=== PATIENT | female | born 1995 | race Caucasian/White ===

== ENCOUNTER 2018-03-30 15:35 | Emergency (ER) | payer MEDICAID ==
[2018-03-30 15:53] VITALS: BP 122/77
--- NOTE | 2018-03-30 16:14 | EDPHY ---
H & P Time Seen by Provider: 03/30/18 15:55 HPI/ROS: CHIEF COMPLAINT: Head injury HISTORY OF PRESENT ILLNESS: 22-year-old female presents to the emergency department by private vehicle with concerns about closed head injury. Patient states 1 week ago she apparently was arrested. She sustained took some type of head injury including an abrasion to the dorsal aspect of her nose. She was placed in assisted and discharge. She has been to urgent care as well as [facility]. They sent her to the emergency department for evaluation of her head injury. She has a mild diffuse headache. Most of her pain is over the anterior aspect of her nose. She denies neck pain. Denies chest pain or difficulty breathing. No nausea or vomiting. Her appetite has been normal. No injury to upper or lower extremities. REVIEW OF SYSTEMS: Constitutional: No fever, no chills. Eyes: No double or blurry vision. ENT: No sore throat. Respiratory: No cough, no shortness of breath. Cardiac: No chest pain. Gastrointestinal: No abdominal pain, vomiting or diarrhea. Genitourinary: No dysuria. Musculoskeletal: No neck or back pain. Skin: No rashes. Neurological: headache. Past Medical/Surgical History: Negative Social History: Single Smoking Status: Current some day smoker Physical Exam: General Appearance: Alert, no distress. Eyes: Pupils equal and round. Extraocular motions are all intact. ENT: Mouth: Mucous membranes moist. Superficial abrasion noted to the anterior aspect of her nose. Nontender to palpate over the nasal bone. Clinically I do not think she has a nasal bone fracture. She has no pain with palpation over sinuses. No hemotympanum or dental injury or malocclusion. Respiratory: No wheezing, rhonchi, or rales, lungs are clear to auscultation. Cardiovascular: Regular rate and rhythm. Gastrointestinal: Abdomen is soft and nontender, no masses, no rebound or guarding, bowel sounds normal. Neurological: Alert and oriented x 3, cranial nerves II through XII grossly intact Skin: Warm and dry, no rashes. Superficial abrasions to the left ankle and lateral aspect of the right ankle. She has some ecchymosis noted to the anterior aspect of her left leg and left thigh. No suturable lacerations noted. Musculoskeletal: Nontender to palpate along the cervical, thoracic or lumbar spine. Neck is supple. Extremities: Full range of motion and no peripheral edema. Normal gait. Psychiatric: Patient is oriented X 3, there is no agitation. Constitutional: Initial Vital Signs Temperature (C) 37.2 C 03/30/18 15:51 Heart Rate 82 03/30/18 15:51 Respiratory Rate 16 03/30/18 15:51 Blood Pressure 122/77 H 03/30/18 15:51 O2 Sat (%) 96 03/30/18 15:51 O2 Delivery Mode Room Air Allergies/Adverse Reactions: No Known Allergies Allergy (Unverified 03/30/18 15:50) Home Medications: Medication Instructions Recorded Flexeril 10 MG (*) 03/30/18 Hydrocodone-Acetamin 10-300 mg 03/30/18 Medical Decision Making ED Course/Re-evaluation: 22-year-old female who apparently had a head injury 1 week ago. She has normal neurologic examination. She has no focal findings on examination. I do not think CT imaging is indicated 1 week out. This was discussed with the patient. She verbalized understanding and agreed. Clinically I do not think she has a nasal bone fracture although I did encourage her to have close follow-up with primary care provider. I do not think imaging is necessary emergency department. She was instructed to return if she developed worsening headache, vomiting, altered mental status, or if she felt worse in any way. Differential Diagnosis: Head injury including but not limited to concussion, skull fracture, intraparenchymal contusion, subarachnoid, subdural and epidural hematoma. Departure - Departure Disposition: Home, Routine, Self-Care Clinical Impression: Nasal bone contusion Head injury Qualifiers: Encounter type: initial encounter Qualified Code(s): S09.90XA - Unspecified injury of head, initial encounter Facial abrasion Qualifiers: Encounter type: initial encounter Qualified Code(s): S00.81XA - Abrasion of other part of head, initial encounter Condition: Good Instructions: Head Injury (ED), Contusion in Adults (ED) Additional Instructions: Avoid any activity that might put you at risk for another head injury for at least 1 week. Activity as tolerated. Return to the emergency department if he developed worsening headache, vomiting, altered mental status, or if you feel worse in any way. Follow-up with primary care provider as discussed. Referrals: Elisabet Hdz DO [Doctor of Osteopathy] - 2-3 days, call for appt. ( Primary care provider sales assistants and salespersons)
== END 2018-03-30 16:42 | disposition home or self-care (01) ==
DX: S09.90XA Unspecified injury of head, initial encounter (principal); S00.81XA Abrasion of other part of head, initial encounter; S00.33XA Contusion of nose, initial encounter; F17.200 Nicotine dependence, unspecified, uncomplicated; W22.8XXA Striking against or struck by other objects, initial encounter